=== PATIENT | male | born 1980 | race Two or more races ===

== ENCOUNTER 2019-04-16 15:20 | Emergency (ER) | payer MEDICAID ==
[~2019-04-16] VITALS: Ht 172.7 cm; Wt 76.2 kg
[~2019-04-16 15:20] MED LIST: NKM; PEPCID40 MG PO
--- NOTE | 2019-04-16 15:41 | NUR ---
ED Nurse Note: Pt walked in to ED for C/O nausea and vomitting x 2 days. denies any abd pain. pt is alert x4.
[2019-04-16 15:42] VITALS: BP 120/71
[2019-04-16] MEDS ORDERED: Omnipaque-300 100ml vial INJ PRN (16:00)
[2019-04-16] MEDS ORDERED: Ketorolac 30mg Inj IV ONE (16:00)
--- NOTE | 2019-04-16 16:12 | NUR ---
ED Nurse Note: urine and blood sample sent to lab
[2019-04-16 16:25] LABS: BASOPHILS % (AUTO) 0.4 % (0.0-2.0); EOSINOPHILS % (AUTO) 0.3 % (0.0-3.0); HEMATOCRIT 48.2 % (42.0-52.0); HEMOGLOBIN 16.3 G/DL (14.2-18.0); LYMPHOCYTES % (AUTO) 13.8 % (20.0-45.0); MEAN CORPUSCULAR VOLUME 88 FL (80-99); NEUTROPHILS % (AUTO) 80.6 % (45.0-75.0); PLATELET COUNT 358 K/UL (150-450); RED BLOOD COUNT 5.47 M/UL (4.70-6.10); RED CELL DISTRIBUTION WIDTH 12.1 % (11.6-14.8); WHITE BLOOD COUNT 13.5 K/UL (4.8-10.8)
[2019-04-16 16:29] LABS: APPEARANCE,URINE CLOUDY; BILIRUBIN, URINE NEGATIVE (NEGATIVE); COLOR,URINE PALE YELLOW; GLUCOSE, URINE (UA) NEGATIVE (NEGATIVE); KETONES,URINE NEGATIVE (NEGATIVE); LEUKOCYTE ESTERASE ,URINE NEGATIVE (NEGATIVE); NITRITE,URINE NEGATIVE (NEGATIVE); PH,URINE 8 (4.5-8.0); PROTEIN,URINE 1+ (NEGATIVE); UROBILINOGEN,URINE NORMAL MG/DL (0.0-1.0)
[2019-04-16 16:56] LABS: ALANINE AMINOTRANSFERASE 45 U/L (12-78); ALBUMIN 3.9 G/DL (3.4-5.0); ALBUMIN/GLOBULIN RATIO 0.9 (1.0-2.7); ALKALINE PHOSPHATASE 81 U/L (46-116); ANION GAP 7 mmol/L (5-15); ASPARTATE AMINO TRANSFERASE 17 U/L (15-37); BILIRUBIN,TOTAL 0.3 MG/DL (0.2-1.0); BLOOD UREA NITROGEN 13 mg/dL (7-18); CARBON DIOXIDE 32 MMOL/L (21-32); CHLORIDE 104 MMOL/L (98-107); POTASSIUM 3.9 MMOL/L (3.5-5.1); SODIUM 143 MMOL/L (136-145)
--- NOTE | 2019-04-16 17:02 | NUR ---
ED Nurse Note: went to CT
--- NOTE | 2019-04-16 17:16 | NUR ---
ED Nurse Note: BaCK from CT
--- NOTE | 2019-04-16 18:03 | Diagnostic Imaging Report ---
Indication: Abnormal pain Technique: CT of the abdomen and pelvis utilizing automated exposure control with intravenous contrast. Venous scanning performed. Axial, sagittal and coronal reformats presented. CT dose: Total DLP 1096.4 mGycm; CTDI vol 18.2 mGy Comparison: None Findings: Minimal dependent atelectasis noted in the posterior lower lobes. Partially imaged heart appears normal in size. No pericardial effusion. Subcentimeter well-circumscribed low-attenuation lesions are noted within the liver which are too small for definitive characterization but may represent hepatic cysts. Hepatic contour appears smooth. Hepatic veins and portal veins appear patent. There are no CT evident gallstones or pericholecystic inflammatory changes. No biliary ductal dilatation. Spleen, adrenal glands and pancreas unremarkable. Kidneys enhance symmetrically. There is no urinary tract stone, hydronephrosis or perinephric stranding bilaterally. No contour deforming renal masses identified. There is thickening of the wall the bladder which may be related to underdistention however correlation with urinalysis recommended to exclude cystitis. Prostate is borderline enlarged with prominence of the bilateral seminal vesicles. There is no free intraperitoneal air or fluid. There are a few scattered colonic diverticula without evidence of acute diverticulitis. The appendix is normal. No periappendiceal inflammatory changes. No evidence of small bowel obstruction. There is a moderate-sized hiatal hernia. There is thickening of the wall the distal esophagus. No acute fractures identified. A linear sclerotic focus is noted within the right femoral neck suggestive of a bone island. No destructive or aggressive osseous lesions present. IMPRESSION: Thickening of the wall of the distal esophagus which may be related to esophagitis in the setting of a moderate-sized hiatal hernia. Cannot exclude pelvic ulcer disease, reflux or neoplastic process involving the esophagus. Recommend gastroenterology follow-up with possible endoscopy. Thickening of the wall the bladder which may be related to underdistention however correlation with urinalysis recommended to exclude cystitis Incidental findings as above. Salient findings correspond with the preliminary report by the teleradiology service. The CT scanner at [facility] is accredited by the [employer] and the scans are performed using protocols designed to limit radiation exposure to as low as reasonably achievable to attain images of sufficient resolution adequate for diagnostic evaluation.
--- NOTE | 2019-04-16 18:19 | Emergency Room Report ---
History of Present Illness General Chief Complaint: Nausea Source: Patient Present Illness HPI 38-year-old male with no significant past medical history here complaining of sudden onset of epigastric and right upper quadrant abdominal pain that started earlier today. Complains of multiple non-bloody emesis bouts, denies diarrhea and constipation. Complains of fever and chills. Denies cough and congestion, urinary frequency and urgency at this time. Patient was previously seen at [facility] 3 years ago for fatty liver. Also reports that he consumes a lot of spicy and acidic food intake. Denies tobacco smoke, marijuana use, drug use. Denies alcohol intake. Has not taken medication for symptom relief. Denies recent travel. Reports that he takes ranitidine on daily basis for gastritis. Denies chest pain, palpitation, no other associated symptoms. Allergies: Coded Allergies: No Known Allergies (Unverified , 11/29/15) Patient History Past Medical History: see triage record Past Surgical History: unable to obtain Pertinent Family History: none Immunizations: UTD Reviewed Nursing Documentation: PMH: Agreed; PSxH: Agreed Nursing Documentation-PMH Past Medical History: No Stated History Review of Systems All Other Systems: negative except mentioned in HPI Physical Exam Vital Signs Date Time Temp Pulse Resp B/P (MAP) Pulse Ox O2 Delivery O2 Flow Rate FiO2 04/16/19 15:36 97.9 65 15 114/71 (85) 96 Room Air Sp02 EP Interpretation: reviewed, normal General Appearance: no apparent distress, alert, GCS 15, non-toxic Head: normocephalic, atraumatic Eyes: bilateral eye normal inspection, bilateral eye PERRL ENT: hearing grossly normal, normal pharynx, no angioedema, normal voice Neck: full range of motion, supple, thyroid normal, no meningismus, no bony tend, supple/symm/no masses Respiratory: chest non-tender, lungs clear, normal breath sounds, no rhonchi, no respiratory distress, no retraction, no accessory muscle use, no wheezing, speaking full sentences Cardiovascular #1: regular rate, rhythm, no edema, no murmur, normal capillary refill Gastrointestinal: normal bowel sounds, non tender, soft, no mass, no organomegaly, no peritonitis, no bruit, non-distended, no guarding, no hernia, no rebound Rectal: deferred Genitourinary: normal inspection, no CVA tenderness Musculoskeletal: back normal, normal range of motion, no calf tenderness, gait/ station normal, non-tender Neurologic: alert, motor strength/tone normal, oriented x3, sensory intact, responsive, speech normal Psychiatric: normal inspection, judgement/insight normal, memory normal Skin: no rash Lymphatic: no adenopathy Medical Decision Making PA Attestation All diagnoses and treatment plans were reviewed and discussed with my supervising physician Dr. Vásquez Diagnostic Impression: Primary Impression: Esophagitis Additional Impressions: Amphetamine abuse UTI (urinary tract infection) ER Course 38-year-old male with no significant past medical history here complaining of sudden onset of epigastric and right upper quadrant abdominal pain that started earlier today. Complains of multiple non-bloody emesis bouts, denies diarrhea and constipation. Complains of fever and chills. Denies cough and congestion, urinary frequency and urgency at this time. Patient was previously seen at [facility] 3 years ago for fatty liver. Also reports that he consumes a lot of spicy and acidic food intake. Denies tobacco smoke, marijuana use, drug use. Denies alcohol intake. Has not taken medication for symptom relief. Denies recent travel. Reports that he takes ranitidine on daily basis for gastritis. Denies chest pain, palpitation, no other associated symptoms. Ddx considered but are not limited to: esophagitis , appendicitis, cholecystis, gastritis, gastroenteritis, UTI, pyelonephritis, SBO, diverticulitis, influenza with GI manifestation, IL, Vital signs: are WNL, pt. is afebrile H&PE are most consistent with: Esophagitis, amphetamine abuse, UTI ORDERS: abdominal CT, abdominal pain set, EKG, omeprazole, Zofran, Keflex ED INTERVENTIONS: NS bolus, Zofran, Pepcid, Toradol. DISCHARGE: At this time pt. is stable for d/c to home. Will provide printed patient care instructions, and any necessary prescriptions. Care plan and follow up instructions have been discussed with the patient prior to discharge. Avoid using methamphetamine, take medication as directed, avoid eating spicy and acidic food. Follow-up with primary care provider for referral to gastroenterology. If worsening symptoms return to emergency room. EKG Diagnostic Results Rate: normal Rhythm: NSR ST Segments: no acute changes Other Impression No acute ST changes noted CT/MRI/US Diagnostic Results CT/MRI/US Diagnostic Results : Imaging Test Ordered: CT abdomen pelvis Impression IMPRESSION: CT findings suspicious for acute esophagitis in the setting of a large hiatal hernia. Cannot exclude peptic ulcer disease or other pathologic process involving the upper gastrointestinal tract. Recommend gastroenterology consult when clinically feasible for further evaluation. Last Vital Signs Date Time Temp Pulse Resp B/P (MAP) Pulse Ox O2 Delivery O2 Flow Rate FiO2 04/16/19 15:42 98.0 77 16 120/71 96 Room Air Disposition: HOME, SELF-CARE Condition: Stable Scripts Cephalexin* (KEFLEX*) 500 Mg Capsule 500 MG ORAL EVERY 6 HOURS for 7 Days, #28 CAP Prov: Leilani Yee 04/16/19 Ondansetron (Zofran) 4 Mg Tablet 4 MG ORAL Q6H PRN for Nausea & Vomiting, #14 TAB Prov: Leilani Yee 04/16/19 Omeprazole (OMEPRAZOLE) 20 Mg Tablet.dr 20 MG ORAL DAILY, #30 TAB Prov: Leilani Yee 04/16/19 Referrals: NOT CHOSEN IPA/MD,REFERRING (PCP) Patient Instructions: Esophagitis, Nausea and Vomiting, Adult, Stimulant Use Disorder-Amphetamines, Urinary Tract Infection, [id number] Additional Instructions: Take medication as directed, avoid using amphetamine, follow-up with your primary care provider, avoid eating spicy and acidic food. If worsening symptoms return to the emergency room. Referral to practice office associate may be needed due to your esophagitis and a small hiatal hernia. Leilani Yee Apr 16, 2019 18:19
[2019-04-16] MEDS ORDERED: CEPHALEXIN500 MG ORAL (18:20)
[2019-04-16] MEDS ORDERED: OMEPRAZOLE20 M3 ORAL (18:20)
[2019-04-16] MEDS ORDERED: ZOFRAN4 M1 ORAL (18:20)
[2019-04-16 18:26] VITALS: BP 128/71
--- NOTE | 2019-04-16 18:28 | NUR ---
ER DISCHARGE NOTE: Patient is cleared to be discharged per ERMD, pt is aox4, on room air, with stable vital signs. pt was given dc and prescription instructions, pt was able to verbalize understanding, pt id band and iv site removed without complications. pt is able to ambulate with steady gait. pt took all belongings.
== END 2019-04-16 18:27 | disposition home or self-care (01) ==
LOC: EMR 15:45
DX: K20.9 Esophagitis, unspecified (principal); N39.0 Urinary tract infection, site not specified; F15.10 Other stimulant abuse, uncomplicated; K44.9 Diaphragmatic hernia without obstruction or gangrene
CPT/HCPCS: 36415; 74177; 80053; 80307; 81003; 83690; 84484; 85025; 87086; 93005; 96361; 96374; 96375; G0480; J1885; J2405; Q9967; S0028; Z7502; 99284

== ENCOUNTER 2019-05-28 17:50 | Emergency (ER) | payer MEDICAID ==
[~2019-05-28] VITALS: Ht 170.2 cm; Wt 81.6 kg
[~2019-05-28 17:50] MED LIST changes: +CEPHALEXIN500 MG ORAL; +OMEPRAZOLE20 M3 ORAL; +ZOFRAN4 M1 ORAL
[2019-05-28 18:05] VITALS: BP 121/73
--- NOTE | 2019-05-28 18:05 | NUR ---
ED Nurse Note: Pt ambulated to ed with steady, c/o coughing and fever x 2 days. pt denies pain at this time. NAD noted. vss.
--- NOTE | 2019-05-28 18:09 | Emergency Room Report ---
History of Present Illness General Chief Complaint: Flu Like Symptoms Source: Patient Present Illness HPI 38-year-old male with no significant medical history here complaining of 1 day of generalized body ache, feeling feverish and chills. Complains of cough and congestion. Denies abdominal pain, nausea vomiting, recent travel. Denies chest pain, shortness of breath, palpitation, headache and dizziness at this time. Appears to have heart rate of 120 upon arrival. Denies any palpitation. Denies chest pain. Reports that he feels feverish however temperature is within normal limits. Denies urinary symptoms. Denies tobacco smoke, drug use , alcohol intake. Allergies: Coded Allergies: No Known Allergies (Unverified , 11/29/15) Patient History Past Medical History: see triage record Past Surgical History: none Pertinent Family History: none Immunizations: UTD Reviewed Nursing Documentation: PMH: Agreed; PSxH: Agreed Nursing Documentation-PMH Past Medical History: No Stated History Review of Systems All Other Systems: negative except mentioned in HPI Physical Exam Vital Signs Date Time Temp Pulse Resp B/P (MAP) Pulse Ox O2 Delivery O2 Flow Rate FiO2 05/28/19 17:59 99.5 126 19 122/73 (89) 96 Room Air Sp02 EP Interpretation: reviewed, normal General Appearance: no apparent distress, alert, GCS 15, non-toxic Head: normocephalic, atraumatic Eyes: bilateral eye normal inspection, bilateral eye PERRL ENT: hearing grossly normal, normal pharynx, no angioedema, normal voice Neck: full range of motion, thyroid normal, no meningismus, supple/symm/no masses Respiratory: chest non-tender, lungs clear, normal breath sounds, no rhonchi, no retraction, no wheezing, speaking full sentences Cardiovascular #1: regular rate, rhythm, no edema, no murmur, normal capillary refill Gastrointestinal: non tender, soft, no bruit Rectal: deferred Genitourinary: no CVA tenderness Musculoskeletal: back normal, no calf tenderness Neurologic: alert, motor strength/tone normal, oriented x3, sensory intact, responsive, speech normal Psychiatric: judgement/insight normal, memory normal, mood/affect normal, no suicidal/homicidal ideation Skin: no rash Lymphatic: no adenopathy Medical Decision Making PA Attestation Diagnosis and treatment plans were reviewed and discussed with my supervising physician Dr. Ivy Diagnostic Impression: Primary Impression: Influenza Additional Impression: URI (upper respiratory infection) ER Course 38-year-old male with no significant medical history here complaining of 1 day of generalized body ache, feeling feverish and chills. Complains of cough and congestion. Denies abdominal pain, nausea vomiting, recent travel. Denies chest pain, shortness of breath, palpitation, headache and dizziness at this time. Appears to have heart rate of 120 upon arrival. Denies any palpitation. Denies chest pain. Reports that he feels feverish however temperature is within normal limits. Denies urinary symptoms. Denies tobacco smoke, drug use , alcohol intake. Ddx considered but are not limited to: strep pharyngitis, URI, tonsillitis, peritonsillar abscess, influenza Vital signs: are WNL, pt. is afebrile H&PE are most consistent with: Influenza ORDERS: Tamiflu, guaifenesin, albuterol ED INTERVENTIONS: None required at this time. DISCHARGE: At this time pt. is stable for d/c to home. Will provide printed patient care instructions, and any necessary prescriptions. Care plan and follow up instructions have been discussed with the patient prior to discharge. Patient take medication as directed, follow-up with primary care provider, increase oral hydration, if worsening symptoms return to the emergency room at this time I believe the elevated heart rate is secondary due to flulike symptoms however advised patient return to the emergency room immediately if chest pain, palpitation, or any worsening symptoms. Last Vital Signs Date Time Temp Pulse Resp B/P (MAP) Pulse Ox O2 Delivery O2 Flow Rate FiO2 05/28/19 18:05 99.5 113 20 121/73 96 Room Air Disposition: HOME, SELF-CARE Condition: Stable Scripts Albuterol Sulfate (VENTOLIN HFA) 18 Gm Hfa.aer.ad 2 PUFFS INH EVERY 6 HOURS, #18 GM 0 Refills Prov: Leilani Yee 05/28/19 Guaifenesin* (GUAIFENESIN*) 100 Mg/5 Ml Liquid 5 ML ORAL Q6H, #120 ML 0 Refills Prov: Leilani Yee 05/28/19 Oseltamivir Phosphate (Tamiflu) 75 Mg Capsule 75 MG ORAL TWICE A DAY for 5 Days, #10 CAP Prov: Leilani Yee 05/28/19 Patient Instructions: Upper Respiratory Infection, Adult Additional Instructions: Take your medication as directed, follow-up with your primary care provider, worsening symptoms, return to the emergency room. Leilani Yee May 28, 2019 18:09
[2019-05-28] MEDS ORDERED: GUAIFENESI100 MG/5 M ORAL (18:10)
[2019-05-28] MEDS ORDERED: TAMIFLU75 MG ORAL (18:10)
[2019-05-28] MEDS ORDERED: VENTOLIN HFA18 GM INH (18:10)
[2019-05-28 18:15] VITALS: BP 121/73
--- NOTE | 2019-05-28 18:15 | NUR ---
ER DISCHARGE NOTE: Patient is cleared to be discharged per ERMD, pt is aox4, on room air, with stable vital signs. pt was given dc and prescription instructions, pt was able to verbalize understanding, pt id band removed. pt is able to ambulate with steady gait. pt took all belongings.
== END 2019-05-28 18:15 | disposition home or self-care (01) ==
LOC: EMR 18:05
DX: J11.1 Influenza due to unidentified influenza virus with other respiratory manifestations (principal)
CPT/HCPCS: 99282